=== PATIENT | male | born 1960 | race Caucasian/White ===

== ENCOUNTER → 2016-10-04 | Outpatient (REF) ==
[~2016-10-04] MED LIST: LOTENSIN40 MG PO; NORVASC 10MG10 MG PO
== END ==
LOC: WSOH 07:54
DX: Z02.89 Encounter for other administrative examinations (principal)

== ENCOUNTER 2021-01-19 11:13 | Outpatient (RCR) | END 2021-03-25 | disposition home or self-care (01) | LOC: WSOH | DX: Z02.89 Encounter for other administrative examinations (principal); I10 Essential (primary) hypertension; E78.00 Pure hypercholesterolemia, unspecified; Z98.890 Other specified postprocedural states; Z87.891 Personal history of nicotine dependence; Z98.1 Arthrodesis status ==

== ENCOUNTER → 2021-10-27 | Outpatient (CLI) | payer BC | LOC: COL.RAD 15:06 | DX: M54.2 Cervicalgia (principal); R20.0 Anesthesia of skin; R20.2 Paresthesia of skin ==

== ENCOUNTER 2022-05-06 19:11 | Emergency (ER) | payer BC ==
[~2022-05-06] VITALS: Ht 167.6 cm; Wt 75.0 kg
[2022-05-06 19:15] VITALS: TEMP 98.1
[2022-05-06 19:27] LABS: BASO % 0.3 % (0.0-2.0); EOS # 0.1 K/mm3 (0.0-0.7); EOS % 0.6 % (0.0-4.0); GRAN % 76.6 % (42.2-75.2); HEMATOCRIT 38.1 % (42.0-52.0); HEMOGLOBIN 13.3 g/dl (13.5-18.0); LYMPH # 1.9 K/mm3 (1.2-3.4); LYMPH % 14.3 % (20.0-51.0); MEAN CELL VOLUME 96 fl (80.0-100.0); MEAN CORPUSCULAR HEMOGLOBIN 34 pg (27-31); MEAN CORPUSCULAR HGB CONC 35 g/dl (33.0-37.0); MONO % 7.7 % (1.7-9.3); PLATELET COUNT 254 K/mm3 (130-400); RED BLOOD COUNT 3.96 M/mm3 (4.20-5.60); REDCELL DISTRIBUTION WIDTH-CV 12.4 % (11.5-14.5)
[2022-05-06 19:46] LABS: ALBUMIN 3.5 gm/dL (3.4-4.8); BILIRUBIN,TOTAL 0.3 mg/dL (0.2-1.2); C-REACTIVE PROTEIN 5.93 mg/dL (0.00-0.50); CALCIUM 10.2 mg/dL (8.4-10.2); CREATININE, serum 1.19 mg/dL (0.72-1.25); POTASSIUM 4.7 mmol/L (3.5-4.5); TOTAL PROTEIN 7.6 gm/dL (6.2-8.1)
[2022-05-06 20:38] LABS: COLLECTION METHOD CLEAN CATCH
[2022-05-06 20:42] LABS: URINE APPEARANCE Clear (CLEAR/HAZY); URINE BLOOD Negative (NEGATIVE); URINE COLOR Yellow (YELLOW); URINE GLUCOSE Negative (NEGATIVE); URINE KETONE Negative (NEGATIVE); URINE NITRATE Negative (NEGATIVE); URINE PROTEIN(semi-quant) Negative (NEGATIVE)
[2022-05-06 20:45] LABS: MUCOUS Present (NOT PRESENT); SQUAMOUS EPITHELIAL None Seen /hpf (0-10); URINE BACTERIA None Seen /hpf (NONE SEEN); URINE RBC 0-2 /hpf (0-2)
[2022-05-06 22:04] LABS: PARTIAL THROMBOPLASTIN TIME 27.8 SECONDS (26.0-37.0)
[2022-05-07] VITALS: BP 110/72; PULSE 94
== END 2022-05-07 00:47 | disposition short-term general hospital (02) ==
LOC: COL.ER 19:11
PROVIDERS: Nurse Practitioner
DX: I81 Portal vein thrombosis (principal); F17.200 Nicotine dependence, unspecified, uncomplicated
CPT/HCPCS: J1644; J2270; J2405; J7030; Q9967